=== PATIENT | male | born 1975 | race Caucasian/White ===

== ENCOUNTER 2022-12-21 08:01 | Day surgery (SDC) | payer BC, OTHER ==
[2022-12-21] MEDS ORDERED: Midazolam 1 MG/ML 2 ML SDV IV ONE (08:02)
[2022-12-21] MEDS ORDERED: Glycopyrrolate 0.2 MG/ML 5 ML MDV IV ONE (08:02)
[2022-12-21] MEDS ORDERED: Lidocaine 2% 5 ML SDV IV ONE (08:02)
[2022-12-21] MEDS ORDERED: Propofol 200 MG/20 ML SDV IV ONE (08:02)
[2022-12-21] MEDS ORDERED: Lactated Ringers 1,000 ML IV SCH (08:15)
[2022-12-21] MEDS ORDERED: Sodium Chloride 0.9% 10 ML Syringe FLUSH PRN (08:15)
== END 2022-12-21 11:41 | disposition home or self-care (01) ==
LOC: FB.SDS 08:01
PROVIDERS: ATTEND Surgery
DX: D12.0 Benign neoplasm of cecum (principal); K63.5 Polyp of colon; K62.1 Rectal polyp; R01.1 Cardiac murmur, unspecified; Z88.0 Allergy status to penicillin; F17.210 Nicotine dependence, cigarettes, uncomplicated
CPT/HCPCS: 45384; 45385; 88305; J2250; J2704; J3490; J7120; 00811